=== PATIENT | male | born 1975 | race Caucasian/White ===

== ENCOUNTER → 2017-09-06 | Outpatient (CLI) | payer BC ==
[~2017-09-06] MED LIST: ALPR-411 PO; CETI10TA84 PO; CHOL200010 PO; CYM/30 PO; FNTTP50 TOP; INSPMPNVLG; LEVO137T3 PO; MULT-506 PO; OMEP40CA PO; TAMS0.4C59 PO
--- NOTE | 2017-09-06 16:54 | DIAGNOSTIC IMAGING REPORT ---
THORACIC SPINE 3 VIEWS ROUTINE HISTORY: Pain BACK PAIN COMPARISON: None. FINDINGS: There is no fracture. No subluxation. Considerable degenerative disc changes throughout. Moderate sclerosis vertebral endplates throughout the entire thoracic region. No evidence for an acute compression deformity. IMPRESSION: Considerable degenerative disc change throughout the entire thoracic region. No acute process. The above report was generated using voice recognition software. It may contain grammatical, syntax or spelling errors. Electronically signed by: Noah Murrieta M.D. 09/06/2017 4:53 PM Dictated Date/Time: 09/06/2017 4:53 PM
== END | disposition home or self-care (01) ==
LOC: C.RAD1850 16:37
PROVIDERS: ATTEND Family Medicine
DX: M54.9 Dorsalgia, unspecified (principal)

== ENCOUNTER 2017-10-17 17:25 | Emergency (ER) | payer BC, OTHER ==
[~2017-10-17] VITALS: Ht 200.7 cm; Wt 103.0 kg
[2017-10-17 17:43] VITALS: TEMP 36.6
[2017-10-17] MEDS ORDERED: ONDANSETRON INJ 2 MG/ML 2 ML VIAL ONE (17:58)
[2017-10-17] MEDS ORDERED: SODIUM CHLORIDE 0.9% 1000ML 1,000 ML IV STA ×3 (18:01→20:54)
[2017-10-17] MEDS ORDERED: ONDANSETRON INJ 2 MG/ML 2 ML VIAL IV STA (18:01)
[2017-10-17] MEDS ORDERED: SODIUM CHLORIDE 0.9% 500ML 500 ML IV STA (18:01)
[2017-10-17 18:05] VITALS: Ht 200.7 cm; Wt 103.0 kg
[2017-10-17] MEDS ORDERED: PROMETHAZINE HCL INJ 25 MG in SODIUM CHLORIDE 0.9% 50ML 50 ML IV STA (18:12)
[2017-10-17] MEDS ORDERED: FENT75DI2 TD (18:18)
[2017-10-17] MEDS ORDERED: LEVO125T72 PO (18:18)
[2017-10-17 18:23] LABS: BASO % 0.1 %; BASO ABS # 0.01 K/uL (0-0.2); HEMATOCRIT 40.5 % (42-52); HEMOGLOBIN 14.2 g/dL (14.0-18.0); IG# 0.03 K/uL (0.00-0.02); LYMPH % 5.8 %; LYMPH ABS # 0.65 K/uL (1.2-3.4); MEAN CELL VOLUME 83.9 fL (80-100); MEAN CORPUSCULAR HEMOGLOBIN 29.4 pg (25-34); MEAN CORPUSCULAR HGB CONC 35.1 g/dl (32-36); MEAN PLATELET VOLUME 9.2 fL (7.4-10.4); MONO % 2.9 %; MONO ABS # 0.32 K/uL (0.11-0.59); NEUT % 90.9 %; NEUT ABS # 10.11 K/uL (1.4-6.5); PLATELET COUNT 371 K/uL (130-400); RED CELL DISTRIBUTION WIDTH CV 12.9 % (11.5-14.5); RED CELL DISTRIBUTION WIDTH SD 39.2 fL (36.4-46.3); WHITE BLOOD COUNT 11.12 K/uL (4.8-10.8)
[2017-10-17 18:29] VITALS: O2SAT 96
[2017-10-17 18:33] LABS: CALCIUM 9.6 mg/dl (8.5-10.1); POTASSIUM 3.5 mmol/L (3.5-5.1)
[2017-10-17 18:44] LABS: TOTAL PROTEIN 8.4 gm/dl (6.4-8.2)
--- NOTE | 2017-10-17 18:52 | DIAGNOSTIC IMAGING REPORT ---
CT SCAN OF THE ABDOMEN AND PELVIS WITHOUT IV CONTRAST CLINICAL HISTORY: Vomiting. Left lower quadrant abdominal pain. COMPARISON STUDY: Abdominal radiographs dated 06/28/2014. TECHNIQUE: CT scan of the abdomen and pelvis is performed from the lung bases to the proximal femora. Images are reviewed in the axial, sagittal, and coronal planes. IV contrast was not administered for this examination as per the referring clinician. Note that the examination was performed in suboptimal fashion without oral and IV contrast. A dose lowering technique was utilized adhering to the principles of ALARA. CT DOSE: 1772.49 mGy.cm FINDINGS: Lung bases: The heart is normal in size and without pericardial effusion. A 2 mm right middle lobe pulmonary nodule is seen on image #22. Punctate calcified granulomas are seen at the lung bases. No airspace consolidation or pleural effusion is identified. Liver: The unenhanced liver is normal in size, contour, and attenuation. There is no intrahepatic biliary ductal dilatation. Gallbladder: Unremarkable. Spleen: Normal in size and attenuation. Pancreas: Unremarkable. Adrenal glands: Unremarkable. Kidneys: The unenhanced kidneys are normal in size and without hydronephrosis. There is a 4 mm nonobstructing calculus in the lower pole of the left kidney. No right renal calculi are identified. There is no evidence of contour deforming renal mass lesion. Abdominal vasculature: The abdominal aorta is normal in course and caliber. Bowel: Mild pericolonic infiltration is questioned. There is no bowel obstruction. The appendix is well-visualized and normal. Peritoneum: There is no intraperitoneal free air or abdominal ascites. There is a small fat-containing umbilical hernia. Lymphadenopathy: None. Pelvic viscera: The bladder, prostate, and seminal vesicles are normal as visualized. Skeletal structures: No lytic or blastic lesions are seen. IMPRESSION: 1. Suboptimal examination without oral and IV contrast. 2. There is a nonobstructing left renal calculus. No ureteral stone is identified and there is no hydronephrosis. 3. Mild pericolonic infiltration is questioned. This is of indeterminant significance. Correlate clinically for evidence of a mild nonspecific colitis. 4. Additional findings as above. Electronically signed by: Brandt Rivera M.D. 10/17/2017 6:51 PM Dictated Date/Time: 10/17/2017 6:40 PM
[2017-10-17] MEDS ORDERED: METOCLOPRAMIDE HCL INJ 5 MG/ML 2 ML VIAL IV STA (19:44)
[2017-10-17] MEDS ORDERED: DiphenhydrAMINE HCL 50 MG/ML VIAL IV STA (19:44)
[2017-10-17] MEDS ORDERED: PROCHLORPERAZINE 5 MG/ML 2 ML VIAL IV STA (21:07)
[2017-10-17 21:24] VITALS: O2SAT 98
--- NOTE | 2017-10-17 21:47 | EMERGENCY ROOM VISIT NOTE ---
History Report prepared by Chaya: Mic Tamayo Under the Supervision of: Dr. Ghanshyam Medina M.D. First contact with patient: 18:00 Chief Complaint: VOMITING Stated Complaint: TYPE 1 DIABETIC,N/V,NO URINATION Nursing Triage Summary: Patient is a Type 1 Diabetic with an insulin pump. Patient has had nausea, vomiting and diarrhea with generalized abdominal pain all day today. Patient's BSGs were in the 300s earlier today. This afternoon, his sugar dropped to 40-90s. Patient drank some juice before coming to the ER. Pump is still attached to patient. Patient unable to sit still. Patient pale and short of breath. History of Present Illness The patient is a 42 year old male who presents to the Emergency Room with complaints of generalized abdominal "discomfort" that he has been experiencing for the past couple of days. The patient did not describe his symptoms as "pain " but stated that his nausea discomfort is an 8/10 in severity. He has also been nauseated with dry heaving for the past couple of days, but only first began to vomit today. The patient is a diabetic and has had gastroparesis in the past. He notes the discomfort from that episode was in a different location. His blood sugars were 150-250 today, which is baseline for him. He notes being intermittently diaphoretic today. The patient takes Fentanyl at baseline for DDD and other chronic back issues. Pt denies LOC, headache, fevers , chills, visual changes, neck pain, chest pain, breathing difficulties, back pain, melena, hematochezia, urinary symptoms, numbness, weakness, lymphadenopathy, rash, or other complaints. Source of History: patient Onset: Couple of days [employer] Position: abdomen Symptom Intensity: 8/10 Quality: other (Discomfort) Associated Symptoms: + diaphoresis, + nausea, + vomiting Review of Systems See HPI for pertinent positives and negatives. A total of ten systems were reviewed and were otherwise negative. Past Medical & Surgical Medical Problems: (1) DDD (degenerative disc disease) (2) Diabetes Family History Cancer Diabetes mellitus Lung disease Social History Smoking Status: Never Smoker Marital Status: Housing Status: lives with significant other Occupation Status: [employer] student Current/Historical Medications Scheduled Alprazolam (Alprazolam), 1 MG PO HS Cetirizine (Zyrtec), 10 MG PO DAILY Cholecalciferol (Vitamin D), 2,000 INTUNIT PO QAM Duloxetine Hcl (Cymbalta), 30 MG PO BID Fentanyl (Fentanyl), 75 MCG TD [id number] Insulin Aspart (novoLOG INSULIN PUMP ), 1 EA N/A UD Levothyroxine Sodium (Synthroid), 125 MCG PO DAILY Multivitamin (Multivitamin), 1 TAB PO HS Allergies Coded Allergies: No Known Allergies (Verified , 10/17/17) Physical Exam Vital Signs Date Time Temp Pulse Resp B/P (MAP) Pulse Ox O2 Delivery O2 Flow Rate FiO2 10/17/17 21:24 80 16 119/56 98 10/17/17 19:51 100 140/69 10/17/17 18:29 96 Room Air 10/17/17 17:43 36.6 92 18 141/75 94 Room Air Physical Exam GENERAL: Awake, alert, Actively vomiting, in moderate distress, very uncomfortable HENT: Normocephalic, atraumatic. Oropharynx unremarkable. EYES: Normal conjunctiva. Sclera non-icteric. NECK: Supple. No nuchal rigidity. FROM. No JVD. RESPIRATORY: Clear to auscultation. CARDIAC: Regular rate, normal rhythm. Extremities warm and well perfused. Pulses equal. ABDOMEN: Soft, non-distended. with LLQ tenderness to palpation. No rebound or guarding. No masses. RECTAL: Deferred. MUSCULOSKELETAL: Chest examination reveals no tenderness. The back is symmetrical on inspection without obvious abnormality. There is no CVA tenderness to palpation. No joint edema. LOWER EXTREMITIES: Calves are equal size bilaterally and non-tender. No edema. No discoloration. NEURO: Normal sensorium. No sensory or motor deficits noted. SKIN: No rash or jaundice noted. Medical Decision & Procedures ER Provider Diagnostic Interpretation: Radiology results as stated below per my review and radiologist interpretation: CT SCAN OF THE ABDOMEN AND PELVIS WITHOUT IV CONTRAST CLINICAL HISTORY: Vomiting. Left lower quadrant abdominal pain. COMPARISON STUDY: Abdominal radiographs dated 06/28/2014. TECHNIQUE: CT scan of the abdomen and pelvis is performed from the lung bases to the proximal femora. Images are reviewed in the axial, sagittal, and coronal planes. IV contrast was not administered for this examination as per the referring clinician. Note that the examination was performed in suboptimal fashion without oral and IV contrast. A dose lowering technique was utilized adhering to the principles of ALARA. CT DOSE: 1772.49 mGy.cm FINDINGS: Lung bases: The heart is normal in size and without pericardial effusion. A 2 mm right middle lobe pulmonary nodule is seen on image #22. Punctate calcified granulomas are seen at the lung bases. No airspace consolidation or pleural effusion is identified. Liver: The unenhanced liver is normal in size, contour, and attenuation. There is no intrahepatic biliary ductal dilatation. Gallbladder: Unremarkable. Spleen: Normal in size and attenuation. Pancreas: Unremarkable. Adrenal glands: Unremarkable. Kidneys: The unenhanced kidneys are normal in size and without hydronephrosis. There is a 4 mm nonobstructing calculus in the lower pole of the left kidney. No right renal calculi are identified. There is no evidence of contour deforming renal mass lesion. Abdominal vasculature: The abdominal aorta is normal in course and caliber. Bowel: Mild pericolonic infiltration is questioned. There is no bowel obstruction. The appendix is well-visualized and normal. Peritoneum: There is no intraperitoneal free air or abdominal ascites. There is a small fat-containing umbilical hernia. Lymphadenopathy: None. Pelvic viscera: The bladder, prostate, and seminal vesicles are normal as visualized. Skeletal structures: No lytic or blastic lesions are seen. IMPRESSION: 1. Suboptimal examination without oral and IV contrast. 2. There is a nonobstructing left renal calculus. No ureteral stone is identified and there is no hydronephrosis. 3. Mild pericolonic infiltration is questioned. This is of indeterminant significance. Correlate clinically for evidence of a mild nonspecific colitis. 4. Additional findings as above. Electronically signed by: Brandt Rivera M.D. 10/17/2017 6:51 PM Dictated Date/Time: 10/17/2017 6:40 PM Laboratory Results 10/17/17 17:53 Red Blood Count 4.83, Mean Corpuscular Volume 83.9, Mean Corpuscular Hemoglobin 29.4, Mean Corpuscular Hemoglobin Concent 35.1, Mean Platelet Volume 9.2, Neutrophils (%) (Auto) 90.9, Lymphocytes (%) (Auto) 5.8, Monocytes (%) (Auto) 2.9, Eosinophils (%) (Auto) 0.0, Basophils (%) (Auto) 0.1, Neutrophils # (Auto) 10.11, Lymphocytes # (Auto) 0.65, Monocytes # (Auto) 0.32, Eosinophils # (Auto) 0.00, Basophils # (Auto) 0.01 10/17/17 17:53 Test 10/17/17 17:53 10/17/17 22:15 White Blood Count 11.12 K/uL (4.8-10.8) Red Blood Count 4.83 M/uL (4.7-6.1) Hemoglobin 14.2 g/dL (14.0-18.0) Hematocrit 40.5 % (42-52) Mean Corpuscular Volume 83.9 fL (80-100) Mean Corpuscular Hemoglobin 29.4 pg (25-34) Mean Corpuscular Hemoglobin Concent 35.1 g/dl (32-36) Platelet Count 371 K/uL (130-400) Mean Platelet Volume 9.2 fL (7.4-10.4) Neutrophils (%) (Auto) 90.9 % Lymphocytes (%) (Auto) 5.8 % Monocytes (%) (Auto) 2.9 % Eosinophils (%) (Auto) 0.0 % Basophils (%) (Auto) 0.1 % Neutrophils # (Auto) 10.11 K/uL (1.4-6.5) Lymphocytes # (Auto) 0.65 K/uL (1.2-3.4) Monocytes # (Auto) 0.32 K/uL (0.11-0.59) Eosinophils # (Auto) 0.00 K/uL (0-0.5) Basophils # (Auto) 0.01 K/uL (0-0.2) RDW Standard Deviation 39.2 fL (36.4-46.3) RDW Coefficient of Variation 12.9 % (11.5-14.5) Immature Granulocyte % (Auto) 0.3 % Immature Granulocyte # (Auto) 0.03 K/uL (0.00-0.02) Anion Gap 9.0 mmol/L (3-11) Est Creatinine Clear Calc Drug Dose 127.6 ml/min Estimated GFR () 107.1 Estimated GFR (Non- 92.4 BUN/Creatinine Ratio 12.1 (10-20) Calcium Level 9.6 mg/dl (8.5-10.1) Magnesium Level 2.0 mg/dl (1.8-2.4) Total Bilirubin 0.4 mg/dl (0.2-1) Aspartate Amino Transf (AST/SGOT) 21 U/L (15-37) Alanine Aminotransferase (ALT/SGPT) 25 U/L (12-78) Alkaline Phosphatase 91 U/L (45-117) Total Protein 8.4 gm/dl (6.4-8.2) Albumin 4.0 gm/dl (3.4-5.0) Globulin 4.4 gm/dl (2.5-4.0) Albumin/Globulin Ratio 0.9 (0.9-2) Lipase 39 U/L (73-393) Beta-Hydroxybutyric Acid 11.06 mg/dL (0.2-2.81) Thyroid Stimulating Hormone (TSH) 0.274 uIu/ml (0.300-4.500) Laboratory results reviewed by me Medications Administered Medications (Trade) Dose Ordered Sig/Francesco Route Start Time Stop Time Status Last Admin Dose Admin Ondansetron HCl (Zofran Inj) 4 mg STK-MED ONCE .ROUTE 10/17/17 17:58 10/17/17 17:59 DC 10/17/17 17:58 4 MG Sodium Chloride 1,000 ml @ 999 mls/hr Q1H1M STAT IV 10/17/17 18:01 10/17/17 19:01 DC 10/17/17 18:01 999 MLS/HR Promethazine HCl 25 mg/Sodium Chloride 51 ml @ 204 mls/hr NOW STAT IV 10/17/17 18:12 10/17/17 18:26 DC 10/17/17 18:32 204 MLS/HR Sodium Chloride 1,000 ml @ 999 mls/hr Q1H1M STAT IV 10/17/17 19:32 10/17/17 20:32 DC 10/17/17 19:45 999 MLS/HR Metoclopramide HCl (Reglan Inj) 10 mg NOW STAT IV 10/17/17 19:44 10/17/17 19:45 DC 10/17/17 19:51 10 MG Diphenhydramine HCl (Benadryl Inj) 25 mg NOW STAT IV 10/17/17 19:44 10/17/17 19:45 DC 10/17/17 19:51 25 MG Sodium Chloride 1,000 ml @ 200 mls/hr Q5H STAT IV 10/17/17 20:54 10/18/17 01:53 10/17/17 20:54 200 MLS/HR Prochlorperazine Edisylate (Compazine Inj) 5 mg NOW STAT IV 10/17/17 21:07 10/17/17 21:08 DC 10/17/17 21:38 5 MG ECG Indication: vomiting Rate (beats per minute): 59 Rhythm: sinus bradycardia, sinus with SA Findings: no acute ischemic change, no ectopy ED Course 175: Ordered Zofran 4 mg IV, Sodium Chloride 1000 mL @ 999 mL/hr IV. 1800: Ordered Sodium Chloride 500 mL @ 999 mL/hr IV. 1802: The patient was evaluated in room C6. A complete history and physical exam was performed. 1811: Ordered Promethazine HCl 51 mL @ 204 mL/hr IV. 1856: I checked on the patient at this time. He is feeling improved. 1938: I checked on the patient at this time. I updated him on the case. 2038: I reevaluated the patient at this time. He is still nauseated. 2149: Patient reevaluated. He is feeling much better. Discussed conservative management with oral Compazine. Patient felt comfortable. He'll follow-up with his PCP regarding the findings. Medical Decision Prior records/ancillary studies reviewed. Triage Nursing notes reviewed and agree them. Additional history obtained from the family. The patient's history was concerning for nausea, vomiting, and abdominal discomfort. Differential diagnosis: Etiologies such as gastroenteritis, food borne illness, infections, appendicitis , diverticulitis, inflammatory bowel disease, GI bleed, biliary pathology, as well as others were entertained. Physical examination findings: As above some mild left lower quadrant tenderness elicited ER treatment provided: IV hydration 2 L NSS and then 200 mL an hour IV IV Zofran IV Phenergan IV Reglan with IV Benadryl On reassessment the patient was still somewhat nauseated but did improve. IV Compazine On reassessment the patient was feeling much better. Nausea, vomiting and dry heaving resolved. Discussed having some oral Compazine at home. Patient was in agreement. Diagnostics interpretation by me: ECG: Sinus bradycardia The labs revealed slight leukocytosis and CBC. Chemistry panel revealed minimal hyperglycemia. No acidosis. Slight elevation of BHB. Mildly low thyroid hormone. Imaging studies: CT scans The patient had significant discomfort from nausea and dry heaving. His CT scan did not reveal any acute intra-abdominal findings but question some mild colitis versus underdistention.. He was hydrated. He is given multiple doses of antinausea medication and had marginal improvement until he received IV Compazine. He then felt significantly better. He was observed and did well. I discussed conservative management at home with close follow-up with his primary physician. He was in agreement. He did have a small amount of Compazine oral tablets given to go. He does have Phenergan at home. If He worsens in any way he will be back. He will monitor her sugar closely. I gave my usual and customary discussion regarding this issue. By the evaluation outlined above other emergent etiologies such as those listed in the differential, as well as others, were deemed relatively unlikely. The patient was educated about the findings as listed above. All questions were answered and the patient was pleased with the treatment. Return instructions were outlined and the patient was discharged in stable condition. The patient was referred to his PCP for follow-up for a recheck of the current condition. Impression Primary Impression: Vomiting Additional Impressions: Abdominal pain, left lower quadrant Colitis Scribe Attestation The scribe's documentation has been prepared under my direction and personally reviewed by me in its entirety. I confirm that the note above accurately reflects all work, treatment, procedures, and medical decision making performed by me. Departure Information Dispostion Home / Self-Care Referrals Cecily Escalante D.O. (PCP) Patient Instructions My [facility] Additional Instructions VOMITING INSTRUCTIONS: DO NOT drive, drink alcohol, operate machinery, or perform dangerous activities today. You were given medications in the ER that can affect your ability to safely function or operate a vehicle. Compazine(prochlorperazine) tablets 5mg: Take one every six hours as needed for nausea. Avoid alcohol, operating machinery or dangerous equipment, working on ladders or roofs, DRIVING, or situations where being under the influence may be dangerous. Ibuprofen(Motrin, Advil) may be used for fever or pain. Use 600mg every six hours as needed. Take with food. Avoid using more than 2400mg in a 24 hour period. Do not use 2400mg per day for more than three consecutive days without physician direction. Prolonged inappropriate use can lead to stomach upset or ulcers. (AND/OR) Acetaminophen(Tylenol) may be used for fever or pain. Use 1000mg every six hours as needed. Avoid using more than 4000mg in a 24 hour period. Rest and drink plenty of fluids as tolerated. Slow sips of water or sports drinks are recommended instead of large amounts all at once. Continue current medications. Once your stomach is settled start with a clear liquid diet (jello, soup broth, etc.) and then advance as tolerated. You should avoid full, heavy meals for about 24 hrs from the time your symptoms resolved. Return to the ER for persistent vomiting, fevers, abdominal pain, chest pains, difficulty breathing, black or bloody stools, worsening of your condition, or as needed. Follow up with your primary physician in 2-3 days for a recheck of your current condition Problem Qualifiers
[2017-10-17] MEDS ORDERED: PROCHLORPERAZINE MALEATE 5 MG TAB PO ONE (22:00)
[2017-10-17] MEDS ORDERED: PHENERGAN 25MG HOMEPACK PO ONE (22:26)
[2017-10-17 22:39] VITALS: BP 105/58; PULSE 80
== END 2017-10-17 22:40 | disposition home or self-care (01) ==
LOC: C.EDB 17:28 → C.EDC 22:40
DX: R11.10 Vomiting, unspecified (principal); R10.32 Left lower quadrant pain; K52.9 Noninfective gastroenteritis and colitis, unspecified; E10.9 Type 1 diabetes mellitus without complications; Z96.41 Presence of insulin pump (external) (internal); Z80.9 Family history of malignant neoplasm, unspecified; Z83.3 Family history of diabetes mellitus; Z83.6 Family history of other diseases of the respiratory system; Z79.4 Long term (current) use of insulin; Z79.899 Other long term (current) drug therapy

== ENCOUNTER 2020-02-23 13:34 | Observation (INO) ==
[2020-02-23] MEDS ORDERED: DiphenhydrAMINE HCL 50 MG/ML VIAL IV STA (13:47)
[2020-02-23] MEDS ORDERED: PROCHLORPERAZINE 2 ML IV ONE (13:47)
[2020-02-23] MEDS ORDERED: SODIUM CHLORIDE 0.9% 1000ML 1,000 ML IV ONE (13:47)
[2020-02-23] MEDS ORDERED: CAPSAICIN CR 0.075% 60 GM TUBE EXT STA (13:47)
[2020-02-23] MEDS ORDERED: MAGNESIUM SULFATE / D5W 1 GM/100 ML BAG IV ONE (13:47)
[2020-02-23] MEDS ORDERED: ACETAMINOPHEN 1,000 MG/100 ML VIAL IV STA (13:49)
[2020-02-23 14:00] LABS: Basophils # (auto) 0.02 K/uL (0-0.2); Basophils % (auto) 0.2 %; Eosinophils # (auto) 0.01 K/uL (0-0.5); Eosinophils % (auto) 0.1 %; Hematocrit (blood only) 39.3 % (42-52); Hemoglobin 13.5 g/dL (14.0-18.0); Immature Granulocytes # (auto) 0.01 K/uL (0.00-0.02); Immature Granulocytes % (auto) 0.1 %; Lymphocytes # (auto) 0.89 K/uL (1.2-3.4); Lymphocytes % (auto) 10.9 %; Mean Corpuscular Hemoglobin 29.3 pg (25-34); Mean Corpuscular Hgb Conc 34.4 g/dL (32-36); Mean Corpuscular Volume 85.2 fL (80-100); Mean Platelet Volume 9.8 fL (7.4-10.4); Monocytes # (auto) 0.54 K/uL (0.11-0.59); Monocytes % (auto) 6.6 %; Neutrophils # (auto) 6.73 K/uL (1.4-6.5); Neutrophils % (auto) 82.1 %; Platelet Count 215 K/uL (130-400); RDW Coefficient of Variation 13.1 % (11.5-14.5); RDW Standard Deviation 40.8 fL (36.4-46.3); Red Blood Count 4.61 M/uL (4.7-6.1)
[2020-02-23 14:22] LABS: BUN Creatinine Ratio 9.3 (10-20); Calcium 9.5 mg/dl (8.5-10.1); Creatinine Clr Calc Pharmacy 134.3 ml/min; Est GFR (African American) 115.3; Est GFR (Non-African American) 99.5; Potassium 3.3 mmol/L (3.5-5.1)
[2020-02-23 14:25] LABS: Albumin Globulin Ratio 1.1 (0.9-2); Bilirubin,Total 0.5 mg/dl (0.2-1); Globulin 3.7 gm/dl (2.5-4.0); Total Protein 7.7 gm/dl (6.4-8.2)
[2020-02-23] MEDS ORDERED: ONDANSETRON INJ 2 MG/ML 2 ML VIAL IV STA (14:28)
[2020-02-23] MEDS ORDERED: POTASSIUM CHLORIDE 20 MEQ/15 ML UDC PO STA (14:28)
[2020-02-23] MEDS: POTASSIUM CHLORIDE / WTR 10 MEQ/100 ML PLCT IV SCH ×2 (15:09→16:08)
[2020-02-23] MEDS ORDERED: CHOLESTYRAMINE LIGHT 4 GM PKT PO STA (15:14)
--- NOTE | 2020-02-23 15:30 | Emergency Department Note ---
History of Present Illness General Chief complaint: Vomiting Stated complaint: DEHYDRATION Time Seen by Provider: 02/23/20 13:41 Source: patient and RN notes reviewed Mode of arrival: ambulatory Limitations: no limitations History of Present Illness Provider complaint: vomiting Onset (ago): day(s) 2 Location: abdomen Radiation: non-radiation Severity: mild Pain Consistency: + constant Maximum Pain Intensity: 3 Relieved By: + none Exacerbated By: + none Associated symptoms: no chest pain, no diaphoresis, no fever/chills, no headaches, no shortness of breath and no weakness Treatments prior to arrival: other (compazine, phenergan) This is a 44-year-old male who presents emergency department complaining of nausea and vomiting. The patient reports he has had episodes like this previously. He took Compazine and Phenergan without any relief. The patient denies any head pain or abdominal pain. He is a diabetic however denies any issues with his sugar. He has previously seen Dr. Leon for his gastro issues. Home Medications Home Medications Medication Instructions Recorded Confirmed Type acetone (urine) test #25 05/07/19 12/04/19 History blood sugar diagnostic #10 05/07/19 12/04/19 History blood-glucose meter #1 ea 05/07/19 12/04/19 History bupropion HCl 150 mg tablet,12 hr 150 mg PO DIRECTED 05/07/19 12/04/19 History sustained-release cholecalciferol (vitamin D3) 50 0 units PO DAILY cap 05/07/19 12/04/19 History mcg (2,000 unit) capsule cyanocobalamin (vitamin B-12) 500 0 mcg PO DAILY tab 05/07/19 12/04/19 History mcg tablet fentanyl 75 mcg/hr transdermal 1 patch TD Q72H 05/07/19 12/04/19 History patch glucagon HCl 1 mg/mL solution for 1 mg IM DIRECTED PRN 05/07/19 12/04/19 History injection insulin glargine 100 unit/mL See Rx Instructions .ROUTE .COMPLEX 05/07/19 12/04/19 History subcutaneous solution insulin syringe-needle U-100 0.5 #10 05/07/19 12/04/19 History mL 31 gauge x 5/16" lancets #50 05/07/19 12/04/19 History prochlorperazine maleate 5 mg PO BID PRN #14 tab 08/24/19 12/04/19 Rx [Compazine] promethazine 12.5 mg PO TID PRN #7 tab 08/24/19 12/04/19 Rx duloxetine 60 mg capsule,delayed 60 mg PO BID cap 09/04/19 12/04/19 History release Baqsimi 3 mg/actuation nasal spray 3 mg INTNAS ONCE #2 ea NS 10/01/19 12/04/19 Rx Novolog U-100 Insulin aspart 100 See Rx Instructions CONTINUOUS 11/02/19 12/04/19 Rx unit/mL subcutaneous solution SUBCUTANEOUS INFUSION DAILY #8 vial NS lisdexamfetamine 20 mg capsule 30 mg PO DAILY cap 12/04/19 12/04/19 History levothyroxine 112 mcg tablet 112 mcg PO DAILYBB #30 tab 12/14/19 Rx ondansetron HCl [Zofran] 4 mg PO Q6 PRN #6 tab 02/23/20 Rx Allergies Allergy/AdvReac Type Severity Reaction Status Date / Time No Known Drug Allergies Allergy Verified 01/24/20 12:10 pollen extracts Allergy Verified 01/24/20 12:10 Past Med/Surg History Medical History Nausea Surgical History History of cervical discectomy (2009) Family History Mother Multiple myeloma Denies family history of Prostate cancer Social History Preferred Language: Kinyarwanda Feels Safe at Home: Yes Smoking Status: Never smoker Review of Systems A total of 10 systems reviewed and were otherwise negative Physical Exam Vital Signs Vital Signs - 24 hr 02/23/20 13:35 02/23/20 15:19 02/23/20 15:30 Temperature 36.6 C Temperature Source Oral Pulse Rate 77 80 92 H Respiratory Rate 22 10 L 21 Respiratory Effort / Characteristics Non-Labored Respiratory Depth Normal Blood Pressure 157/64 H Blood Pressure Mean 95 Blood Pressure Position Sitting Pulse Oximetry 100 Oxygen Delivery Method Room Air Sepsis Recent Fever Within 48 Hours No Sepsis New/Unexplained Change in Mental Status No Sepsis Action Taken by Nursing No Action Required 02/23/20 16:00 02/23/20 16:30 Temperature Temperature Source Pulse Rate 73 79 Respiratory Rate 16 17 Respiratory Effort / Characteristics Respiratory Depth Blood Pressure Blood Pressure Mean Blood Pressure Position Pulse Oximetry Oxygen Delivery Method Sepsis Recent Fever Within 48 Hours Sepsis New/Unexplained Change in Mental Status Sepsis Action Taken by Nursing VITAL SIGNS - Vital signs and nursing notes were reviewed. GENERAL - 44-year-old male appearing stated age who is actively vomiting. Communicates well with provider and answers questions appropriately. SKIN - Without rashes. HEAD - NC/AT. EYES - PERRL with EOMI bilaterally. Sclera anicteric. Palpebral conjunctiva pink and moist with no injection noted. EARS - No deformities of external structures noted on gross examination bilaterally. No pain elicited with palpation of the tragus bilaterally. External auditory canals without discharge or otorrhea. Tympanic membranes pearly guevara without retraction or bulging. No fluid or purulent material visualized behind the TM. Handle of malleus, umbo, cone of light, pars tensa/flaccid all easily visualized. NOSE - Midline and without cyanosis. No epistaxis or purulent drainage noted. Septum midline without deviation or septal hematoma noted. MOUTH/OROPHARYNX - Without perioral cyanosis. Buccal mucosa pink and moist and without leukoplakia. Tongue midline with equal elevation of palate bilaterally. No tonsillar hypertrophy, erythema, or exudates noted. dentition noted. NECK - Neck with FROM. Supple to palpation. lymphadenopathy noted. No nuchal rigidity. LUNGS - Chest wall symmetric without accessory muscle use, intercostals retractions, or central cyanosis. Normal vesicular breath sounds CTA B/L. No wheezes, rales, or rhonchi appreciated. CARDIAC - RRR with S1/S2. No murmur, rubs, or gallops appreciated. ABDOMEN - Abdominal contour without pulsations or visible masses. BS normoactive all four quadrants. No tenderness, palpable masses, hepatosplenomegaly, or ascites noted. EXTREMITIES - No clubbing or peripheral cyanosis. No pretibial edema present. +3/5 radial, posterior tibial, and dorsalis pedis pulses palpated throughout. +5/5 strength noted in UE/LE bilaterally. NEUROLOGIC - Cranial nerves II through XII grossly intact. Sensory intact to light touch throughout. Patellar reflexes +2/4. PSYCH - A&Ox3 and cooperates fully with examiner. Pt is very pleasant and interacts well with examiner. Course Administered Medications Discontinued Medications Capsaicin (Zostrix) 1 appln EXT NOW STA Stop: 02/23/20 13:48 Last Admin: 02/23/20 14:04 Dose: 1 appln Documented by: [id number] Cholestyramine Resin (Questran) 4 gm PO NOW STA Stop: 02/23/20 15:15 Last Admin: 02/23/20 16:04 Dose: 4 gm Documented by: [id number] Diphenhydramine HCl (Benadryl) 50 mg IV NOW STA Stop: 02/23/20 13:48 Last Admin: 02/23/20 14:04 Dose: 50 mg Documented by: [id number] Sodium Chloride (Nss 1000ml) 1,000 mls @ 999 mls/hr IV .Q1H1M ONE Stop: 02/23/20 14:47 Last Infusion: 02/23/20 15:10 Dose: 0 mls/hr Documented by: [id number] Admin: 02/23/20 14:04 Dose: 999 mls/hr Documented by: [id number] Prochlorperazine (Compazine) 2 mls @ 1 mls/min IV ONE ONE Stop: 02/23/20 13:48 Last Admin: 02/23/20 14:04 Dose: 1 mls/min Documented by: [id number] Magnesium Sulfate/Dextrose (Magnesium Sulfate / D5w) 1 gm in 100 mls @ 50 mls/hr IV ONE ONE Stop: 02/23/20 15:46 Last Infusion: 02/23/20 15:09 Dose: 0 mls/hr Documented by: [id number] Admin: 02/23/20 14:28 Dose: 50 mls/hr Documented by: [id number] Acetaminophen (Ofirmev) 1,000 mg in 100 mls @ 400 mls/hr IV NOW STA Stop: 02/23/20 14:03 Last Infusion: 02/23/20 14:29 Dose: 0 mls/hr Documented by: [id number] Admin: 02/23/20 14:04 Dose: 400 mls/hr Documented by: [id number] Potassium Chloride (K Leonard / Wtr) 10 meq in 100 mls @ 100 mls/hr IV Q1H CRESENCIO Stop: 02/23/20 16:29 Last Infusion: 02/23/20 17:05 Dose: 0 mls/hr Documented by: [id number] Admin: 02/23/20 16:08 Dose: 100 mls/hr Documented by: [id number] Infusion: 02/23/20 16:08 Dose: 100 mls/hr Documented by: [id number] Admin: 02/23/20 15:09 Dose: 100 mls/hr Documented by: [id number] Promethazine HCl (Phenergan) 25 mg in 51 mls @ 204 mls/hr IV NOW STA Stop: 02/23/20 17:26 Last Infusion: 02/23/20 17:42 Dose: 0 mls/hr Documented by: [id number] Admin: 02/23/20 17:24 Dose: 204 mls/hr Documented by: [id number] Methylprednisolone (Solumedrol) 125 mg IV NOW STA Stop: 02/23/20 17:13 Last Admin: 02/23/20 17:24 Dose: 125 mg Documented by: [id number] Ondansetron HCl (Zofran) 4 mg IV NOW STA Stop: 02/23/20 14:29 Last Admin: 02/23/20 14:50 Dose: 4 mg Documented by: [id number] Potassium Chloride (Theresa Ciel Elix) 40 meq PO NOW STA Stop: 02/23/20 14:29 Last Admin: 02/23/20 15:09 Dose: 40 meq Documented by: [id number] Medical Decision Making Differential Diagnosis Appendicitis, testicular torsion, infections, diverticulitis, UTI, obstruction, mesenteric ischemia, aortic pathology, inflammatory bowel disease, renal colic, PUD, pancreatitis, biliary pathology, hernia, volvulus, constipation, as well as other pathologies. Medical Records Attestation: I reviewed the patient's medical records. Home Medications Current Medication List: was personally reviewed by me Laboratory Data Attestation: I reviewed the patient's lab results. Result diagrams: 02/23/20 13:50 02/23/20 13:50 Lab Results 02/23/20 02/23/20 Range/Units 13:50 13:50 WBC 8.20 (4.8-10.8) K/uL RBC 4.61 L (4.7-6.1) M/uL Hgb 13.5 L (14.0-18.0) g/dL Hct 39.3 L (42-52) % MCV 85.2 (80-100) fL MCH 29.3 (25-34) pg MCHC 34.4 (32-36) g/dL RDW Std Deviation 40.8 (36.4-46.3) fL RDW Coeff of Edd 13.1 (11.5-14.5) % Plt Count 215 (130-400) K/uL MPV 9.8 (7.4-10.4) fL Immature Gran % (Auto) 0.1 % Neut % (Auto) 82.1 % Lymph % (Auto) 10.9 % [place] % (Auto) 6.6 % Eos % (Auto) 0.1 % Baso % (Auto) 0.2 % Immature Gran # (Auto) 0.01 (0.00-0.02) K/uL Neut # (Auto) 6.73 H (1.4-6.5) K/uL Lymph # (Auto) 0.89 L (1.2-3.4) K/uL [place]ell # (Auto) 0.54 (0.11-0.59) K/uL Eos # (Auto) 0.01 (0-0.5) K/uL Baso # (Auto) 0.02 (0-0.2) K/uL Sodium 138 (136-145) mmol/L Potassium 3.3 L (3.5-5.1) mmol/L Chloride 104 (98-107) mmol/L Carbon Dioxide 24 (21-32) mmol/L Anion Gap 10.0 (3-11) BUN 9 (7-18) mg/dl Creatinine 0.93 (0.6-1.4) mg/dl Est Cr Clr Drug Dosing 134.3 ml/min Est GFR ( Amer) 115.3 Est GFR (Non-Af Amer) 99.5 BUN/Creatinine Ratio 9.3 L (10-20) Glucose 181 H (70-99) mg/dl Calcium 9.5 (8.5-10.1) mg/dl Total Bilirubin 0.5 (0.2-1) mg/dl AST 48 H (15-37) U/L ALT 40 (12-78) U/L Alkaline Phosphatase 75 (45-117) U/L Total Protein 7.7 (6.4-8.2) gm/dl Albumin 4.0 (3.4-5.0) gm/dl Globulin 3.7 (2.5-4.0) gm/dl Albumin/Globulin Ratio 1.1 (0.9-2) Lipase 110 (73-393) U/L Blood Pressure Blood Pressure Findings: Elevated blood pressure Blood Pressure Disposition: elevated BP felt to be situational MDM Narrative This is a 44-year-old male who presents emergency department after 3 days of diarrhea and began vomiting. Patient reports he has had episodes like this previously. He is taking Compazine and Phenergan at home without relief. He is actively vomiting upon arrival to the emergency department. Using shared medical decision making with the patient decision was made to obtain IV work and to try medications. He was given Zofran as well as Tylenol and capsaicin here in the emergency department he was also given Benadryl as well as Compazine. Repeat examination revealed improvement the patient's symptoms. I attempted to replete the patient's potassium here in the emergency department however the patient vomited up. He was then given IV potassium. Because the patient continues to vomit I did discuss the case with the hospitalist service who did agree to admit the patient. Serial abdominal examinations were performed on the patient in the emergency department and at no time the patient exhibited surgical abdomen or abdominal tenderness. Patient was seen and evaluated as above in room B5. Review was performed of nursing notes and vital signs. I did review pertinent previous visits and valentino ent history. After obtaining a thorough history and physical examination the above work up was performed. An order was placed for continuous cardiac monitoring. The monitor shows a rate of 79 with Normal SInus rhythm. The patient was evaluated during the global COVID-19 pandemic, and that di agnosis was suspected/considered upon their initial presentation. Their evaluation, treatment and testing was consistent with current guidelines for patients who present with complaints or symptoms that may be related to COVID- 19. Impression & Plan Vomiting, Acute hypokalemia Discharge Plan Visit Data Chief Complaint: Vomiting Stated Complaint: DEHYDRATION ED Provider: Maverick Curiel Discharge Problem: Vomiting, Acute hypokalemia Patient Disposition: Home - Self-Care Condition: Good Discharge Instructions Yana/Other Patient Handouts: Nausea Vomit Control, Vomit Diarrhea Self Care Activity Restrictions/Additional Instructions: Follow up with DR Klein's office You have been examined and treated today on an emergency basis only. This is not a substitute for, or an effort to provide, complete comprehensive medical care. It is impossible to recognize and treat all injuries or illnesses in a single e mergency department visit. It is therefore important that you follow up closely with DR Escalante. Call as soon as possible for an appointment. Thank you for your time and consideration. I look forward to speaking with you again soon. Please don't hesitate to call us if you have any questions. Forms Stand Alone Forms: My [facility], Important Visit Information Prescriptions Prescriptions: New ondansetron HCl [Zofran] 4 mg tablet 4 mg PO Q6 PRN (Reason: nausea and vomiting) Qty: 6 RF: 0 No Action levothyroxine 112 mcg tablet 112 mcg PO DAILYBB Qty: 30 RF: 5 Novolog U-100 Insulin aspart 100 unit/mL solution See Rx Instructions continuous subcutaneous infusion DAILY Qty: 8 RF: 3 Baqsimi 3 mg/actuation spray,non-aerosol 3 mg INTNAS ONCE Qty: 2 RF: 6 (DME) lancets [Accu-Chek Fastclix Lancet Drum] misc See Dose Instructions .ROUTE .MEDSUPPLY Qty: 50 RF: 0 (DME) Accu-Chek Guide strip See Dose Instructions .ROUTE .MEDSUPPLY Qty: 10 RF: 0 (DME) blood-glucose meter [Accu-Chek Guide Glucose Meter] misc See Dose Instructions .ROUTE .MEDSUPPLY Qty: 1 RF: 0 (DME) insulin syringe-needle U-100 [BD Insulin Syringe Ultra-Fine] 0.5 mL 31 gauge x 5/16" syringe See Dose Instructions .ROUTE .MEDSUPPLY Qty: 10 RF: 0 bupropion HCl 150 mg tablet sustained-release 12 hr 150 mg PO DIRECTED RF: 0 fentanyl 75 mcg/hr patch 72 hour 1 patch TD Q72H RF: 0 glucagon HCl 1 mg recon soln 1 mg IM DIRECTED PRN (Reason: Hypocalcemia) RF: 0 (DME) Ketostix strip See Dose Instructions .ROUTE .MEDSUPPLY Qty: 25 RF: 0 Lantus U-100 Insulin 100 unit/mL solution See Rx Instructions .ROUTE .COMPLEX RF: 0 cyanocobalamin (vitamin B-12) 500 mcg tablet 0 mcg PO DAILY RF: 0 cholecalciferol (vitamin D3) 2,000 unit capsule 0 units PO DAILY RF: 0 duloxetine [Cymbalta] 60 mg capsule,delayed release(DR/EC) 60 mg PO BID RF: 0 promethazine 12.5 mg tablet 12.5 mg PO TID PRN (Reason: nausea and vomiting) Qty: 7 RF: 0 prochlorperazine maleate [Compazine] 5 mg tablet 5 mg PO BID PRN (Reason: nausea and vomiting) Qty: 14 RF: 0 Vyvanse 20 mg capsule 30 mg PO DAILY RF: 0 Referrals Referrals: Cecily Escalante DO [Primary Care Provider] - Maria Elena Klein [Physician] - Discharge Problem: Vomiting Qualifiers: Vomiting type: unspecified Vomiting Intractability: unspecified Nausea presen ce: unspecified Qualified Code(s): R11.10 - Vomiting, unspecified
[2020-02-23] MEDS ORDERED: PROMETHAZINE 25 MG/51 ML BAG IV STA (17:12)
[2020-02-23] MEDS ORDERED: methylPREDNISolone 125 MG/2 ML VIAL IV STA (17:12)
--- NOTE | 2020-02-23 18:09 | History & Physical Report ---
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 Start lactobacillus if tolerating Clears as tolerating Does use regular medical marijuana, but with recent decrease in use. Still with daily use however. Cyclic vomiting syndrome related to MJ use? 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 Pt states that he started to have n/v on Thur sday AM. It seemed similar to his cyclic vomiting episodes he has had in the past, so he took his home phenergan/compazine and this did help. He was able to tolerate some liquids at that time. That night, he developed diarrhea. He had ongoing diarrhea yesterday, but no emesis. He did have mild nausea and did tolerate some PO yesterday, but minimal. This AM, he took Imodium for his diarrhea and had return of n/v. He again tried his phenergan/compazine, but threw them up almost immediately and that was the last of his dosing, so he came to the ED. Pt was feeling a bit better with steroids, zofran, IVF, benadryl, compazine, phenergan in the ED and was being prepared for d/c to home when he had return of emesis. It was decided that pt should stay for overnight observation. He does get some cramping with emesis, but no other abd pain. Pt states that it has been 3-4 months since his last issue with this. He does generally tie it with increased anxiety and stress, which he has had recently due to end of the semester issues and COVID. He uses medical marijuana regularly and had been able to do so during this episode. He states that he has been trying to cut down his use, but does use it daily. He states his BS have been doing well recently. It is a bit high today, but this is consistent with a "sick day" for him. Pt was seen by Ellie Sumner on 02/18 and felt to be doing well from a DM management standpoint. No changes made at that time. Pt states he had a gastric emptying test 6-8 months ago and it was WNL. Pt denies fever, SOB, chest pain, LE pain or swelling. Allergies Allergy/AdvReac Type Severity Reaction Status Date / Time No Known Drug Allergies Allergy Verified 01/24/20 12:10 pollen extracts Allergy Verified 01/24/20 12:10 Home Medications Home Medications Medication Instructions Recorded Confirmed Type bupropion HCl 150 mg tablet,12 hr 150 mg PO BID ea 05/07/19 02/23/20 History sustained-release cyanocobalamin (vitamin B-12) 500 0 mcg PO DAILY tab 05/07/19 02/23/20 History mcg tablet fentanyl 75 mcg/hr transdermal 1 patch TD Q72H ea 05/07/19 02/23/20 History patch prochlorperazine maleate 5 mg PO BID PRN #14 tab 08/24/19 02/23/20 Rx [Compazine] promethazine 12.5 mg PO TID PRN #7 tab 08/24/19 02/23/20 Rx duloxetine 60 mg capsule,delayed 60 mg PO BID cap 09/04/19 02/23/20 History release lisdexamfetamine 20 mg capsule 30 mg PO DAILY cap 12/04/19 02/23/20 History levothyroxine 112 mcg tablet 112 mcg PO DAILYBB #30 tab 12/14/19 02/23/20 Rx insulin aspart U-100 [Novolog 0 unit CONTINUOUS SUBCUTANEOUS 02/23/20 02/23/20 History U-100 Insulin aspart] INFUSION DAILY ondansetron HCl [Zofran] 4 mg PO Q6 PRN #6 tab 02/23/20 Rx oxycodone 5 mg PO Q8H PRN 02/23/20 02/23/20 History Past Med/Surg History Medical History Nausea Surgical History History of cervical discectomy (2009) Family History Mother Multiple myeloma Denies family history of Prostate cancer Social History (Updated 02/23/20 @ 18:16 by Genesis Galaviz DO) Preferred Language: Croatian Feels Safe at Home: Yes Smoking Status: Never smoker Hx Alcohol Use: Yes Alcohol Intake Frequency Comment: 1-2 drinks a month Hx Substance Use: Yes Last Used Substance Other:: medical marijuana daily Review of Systems Review of Systems: Pertinent positives and negatives reviewed in HPI--all others negative Physical Exam Constitutional: WD/WN, vitals as above + ill appearing Eyes: normal visual arritea by confrontation and + anicteric sclerae Neck: normal visual inspection and trachea midline Respiratory: normal respiratory effort, lungs clear to auscultation Cardiovascular: Rate/Rhythm: regular rate and regular rhythm Gastrointestinal (Abdomen): Inspection/Auscultation: abdomen not distended Percussion/Palpation: abdomen soft; abdomen nontender Musculoskeletal: Head/Neck/Chest: normocephalic and head atraumatic negative for edema, peripheral pulses intact Skin: no rashes, warm and dry Neurologic: awake; not confused Speech / Cognition: normal speech Psychiatric: A+Ox3, euthymic affect Results & Data Results & Data ([facility]) Vital Signs (Past 12 Hours) Vital Signs Temp Pulse Resp BP Pulse Ox 02/23/20 16:30 79 17 02/23/20 16:00 73 16 02/23/20 15:30 92 H 21 02/23/20 15:19 80 10 L 02/23/20 13:35 36.6 C 77 22 157/64 H 100 PG Care Time/CCT Total # of Minutes Spent Total Time Spent with Patient: Total time spent is greater than 50% in coordination of care (as documented) at patient's floor/unit and/or counseling patient: Coding Level of Care Code 51795 OBS Care - Level 3 Diagnoses Intractable nausea and vomiting R11.2 Acute hypokalemia E87.6 Hypothyroidism E03.9 Depression F32.9 Anxiety F41.9 Diabetic peripheral neuropathy E11.42 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
[2020-02-23] MEDS ORDERED: OXYCODONE HCL IR 5 MG TAB (IMMEDIATE RELEASE) PO PRN (19:43)
[2020-02-23] MEDS ORDERED: PROCHLORPERAZINE MALEATE 5 MG TAB PO PRN (19:43)
[2020-02-23] MEDS ORDERED: PROMETHAZINE HCL 25 MG TAB PO PRN ×2 (19:43)
[2020-02-23] MEDS ORDERED: MAGNESIUM HYDROXIDE SUSP 30 ML UDC PO PRN (19:43)
[2020-02-23] MEDS ORDERED: PROCHLORPERAZINE 5 MG in SYRINGE 4 ML IV PRN (19:43)
[2020-02-23] MEDS ORDERED: ACETAMINOPHEN 325 MG TAB PO PRN (19:43)
[2020-02-23] MEDS ORDERED: ONDANSETRON INJ 2 MG/ML 2 ML VIAL IV PRN (19:43)
[2020-02-23] MEDS ORDERED: PROMETHAZINE HCL 12.5 MG in SODIUM CHLORIDE 0.9% 50 ML IV PRN (19:43)
[2020-02-23] MEDS ORDERED: GLUCAGON FOR INJ 1 MG VIAL SQ PRN (20:30)
[2020-02-23] MEDS ORDERED: CARBOHYDRATES FOR HYPOGLYCEMIA PO PRN (20:30)
[2020-02-23] MEDS ORDERED: GLUCOSE 10 TABS/TUBE PO PRN (20:30)
[2020-02-23] MEDS ORDERED: GLUCOSE 40% GEL 15 GM TUBE PO PRN (20:30)
[2020-02-23] MEDS ORDERED: DEXTROSE 50% 50 ML SYRINGE IV PRN (20:30)
[2020-02-23] MEDS ORDERED: INSULIN ASPART 100 UNITS/ML VIAL SC PRN (20:30)
[2020-02-23] MEDS ORDERED: fentaNYL 75 MCG/HR TDSY TD SCH (21:00)
[2020-02-23] MEDS: DULOXETINE HCL 60 MG CAP PO SCH (21:18)
[2020-02-23] MEDS: NSS + 20MEQ KCL 20 MEQ/1,000 ML BAG IV SCH (21:19)
[2020-02-23] MEDS: BuPROPion SR 150 MG TABCR PO SCH (21:43)
[2020-02-23] MEDS: NovoLOG INSULIN PUMP SCH (21:45)
[2020-02-24] MEDS: CHECK FENTANYL PATCH PLACEMENT SCH ×2 (00:07→08:19)
[2020-02-24 00:17] LABS: Appearance Urine Clear (Clear); Bilirubin Urine Negative (Negative); Blood Urine Negative (Negative); Color Urine Yellow; Glucose Urine UA Negative (Negative); Ketones Urine 3+ (Negative); Leukocyte Esterase Urine Negative (Negative); Nitrite Urine Negative (Negative); Protein Urine Negative (Negative); Urobilinogen Urine Negative (Negative); pH Urine 6.5 (4.5-7.5)
[2020-02-24] MEDS: NSS + 20MEQ KCL 20 MEQ/1,000 ML BAG IV SCH (06:10)
[2020-02-24] MEDS ORDERED: LEVOTHYROXINE SODIUM 112 MCG TABLET PO SCH (06:30)
[2020-02-24] MEDS ORDERED: LACTOBACILLUS ACIDOPHILUS (FLORANEX) TAB PO SCH (08:00)
[2020-02-24] MEDS: NovoLOG INSULIN PUMP SCH (08:18)
[2020-02-24] MEDS: DULOXETINE HCL 60 MG CAP PO SCH (08:19)
[2020-02-24] MEDS: BuPROPion SR 150 MG TABCR PO SCH (08:19)
[2020-02-24] MEDS ORDERED: INSULIN ASPART PER UNIT SC SCH (09:00)
[2020-02-24] MEDS ORDERED: CYANOCOBALAMIN 500 MCG TABLET (VITAMIN B-12) PO SCH (09:00)
[2020-02-24] MEDS ORDERED: LISDEXAMFETAMINE 30 MG PO SCH (09:00)
[2020-02-24 09:12] LABS: BUN Creatinine Ratio 12.5 (10-20); Calcium 8.9 mg/dl (8.5-10.1); Est GFR (African American) 122.8; Magnesium 2.3 mg/dl (1.8-2.4); Phosphorus 3.2 mg/dl (2.5-4.9); Potassium 3.8 mmol/L (3.5-5.1)
--- NOTE | 2020-02-24 11:20 | Discharge Summary ---
Date of Service February 24, 2020 Admission HPI Per Admitting Provider 44 y/o M c/o intractable n/v. Pt states that he started to have n/v on AM. It seemed similar to his cyclic vomiting episodes he has had in the past, so he took his home phenergan/compazine and this did help. He was able to tolerate some liquids at that time. That night, he developed diarrhea. He had ongoing diarrhea yesterday, but no emesis. He did have mild nausea and did tolerate some PO yesterday, but minimal. This AM, he took Imodium for his diarrhea and had return of n/v. He again tried his phenergan/compazine, but threw them up almost immediately and that was the last of his dosing, so he came to the ED. Pt was feeling a bit better with steroids, zofran, IVF, benadryl, compazine, phenergan in the ED and was being prepared for d/c to home when he had return of emesis. It was decided that pt should stay for overnight observation. He does get some cramping with emesis, but no other abd pain. Pt states that it has been 3-4 months since his last issue with this. He does generally tie it with increased anxiety and stress, which he has had recently due to end of the semester issues and COVID. He uses medical marijuana regularly and had been able to do so during this episode. He states that he has been trying to cut down his use, but does use it daily. He states his BS have been doing well recently. It is a bit high today, but this is consistent with a "sick day" for him. Pt was seen by Ellie Sumner on 02/18 and felt to be doing well from a DM management standpoint. No changes made at that time. Pt states he had a gastric emptying test 6-8 months ago and it was WNL. Pt denies fever, SOB, chest pain, LE pain or swelling. Principal Diagnosis Pt has had no further n/v since arriving to the floor from the ED. He has not required any PRN medications. He tolerated clears for dinner and breakfast without issue. His diarrhea has resolved s/p the Imodium he took [employer] [employer]. He is out of his home PRN n/v medications as he took his last doses [employer] [employer]. Pt denies fever, SOB, chest pain, abd pain, LE pain or swelling. Discharge Exam Constitutional WD/WN, vitals as above Eyes normal visual arrieta by confrontation and + anicteric sclerae Neck normal visual inspection and trachea midline Respiratory normal respiratory effort, lungs clear to auscultation Cardiovascular Rate/Rhythm: regular rate and regular rhythm Gastrointestinal (Abdomen) Inspection/Auscultation: abdomen not distended Percussion/Palpation: abdomen soft; abdomen nontender Musculoskeletal Head/Neck/Chest: normocephalic and head atraumatic Skin no rashes, warm and dry Neurologic awake; not confused Speech / Cognition: normal speech Psychiatric A+Ox3, euthymic affect Discharge Data Allergies Allergy/AdvReac Type Severity Reaction Status Date / Time No Known Drug Allergies Allergy Verified 01/24/20 12:10 pollen extracts Allergy Verified 01/24/20 12:10 Consultations 02/23/20 17:12 ED Decision to Admit Stat Hospital Course (1) Intractable nausea and vomiting: compazine, phenergan, benadryl, steroids in the ED Did not have further n/v since admission Diarrhea has resolved as well Hx of similar episodes Reports neg gastric emptying 6-8 months ago 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 Does use regular medical marijuana, but with recent decrease in use. Still with daily use however. Cyclic vomiting syndrome related to MJ use? 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, with long-term current use of insulin: Pt requests to use his home insulin pump A1c 7.5 10/29 Recent DM visit on 02/18 was felt to be in good management and no changes made to current regimen (8) DVT prophylaxis: SCDs, ambulation Total Time Total Time Spent Total Time Spent (In Minutes): >30 Total Time Includes: Examination of the Patient, Discharge Planning, Medication Reconciliation and Other Discharge Plan Discharge Items Patient Disposition: Home - Self-Care Reason For Visit: INTRACTABLE N/V Discharge Diagnosis: Intractable nausea/vomiting Condition on Discharge: Good Activity: Resume your previous activity Non-emergency contact: Primary Care Provider Call non-emergency contact if: you have any medication questions and your symptoms worsen Follow-up/Referrals: Cecily Escalante, [Primary Care Provider] - Diet: Carb Count or DM1 Addtl Attending Provider Instructions: You should keep your diet a bit more light over the next few days, meaning avoid very heavy meals that are fatty, greasy, fried, spicy, as well as very large meals. You should start taking a probiotic. The one I recommend for most patients is Jarrow EPS 5 billion. It is a mix of 8 different bacteria. You can find this product at [employer] in [place]. You should start with 1 a day. The goal is to have 1 solid bowel movement a day. If after 2 weeks you are still feeling constipated, you should increase to 2 probiotics daily. You can take up to 4 a day, but you want to take the least amount of any type of medication or supplement. If you start having diarrhea, you might be taking too much and should decrease. Pending Studies at Discharge: No Stand-Alone Forms: My [facility] Job, Smoking Cessation Medications and DC Order Prescriptions: New ondansetron HCl [Zofran] 4 mg tablet 4 mg PO Q6 PRN (Reason: nausea and vomiting) Qty: 6 RF: 0 promethazine 25 mg Tablet 12.5 mg PO TID PRN (Reason: nausea and vomiting) Qty: 30 RF: 0 prochlorperazine maleate 5 mg Tablet 5 mg PO BID PRN (Reason: nausea and vomiting) Qty: 30 RF: 0 Continued levothyroxine 112 mcg tablet 112 mcg PO DAILYBB Qty: 30 RF: 5 bupropion HCl 150 mg tablet sustained-release 12 hr 150 mg PO BID RF: 0 fentanyl 75 mcg/hr patch 72 hour 1 patch TD Q72H RF: 0 cyanocobalamin (vitamin B-12) 500 mcg tablet 0 mcg PO DAILY RF: 0 duloxetine [Cymbalta] 60 mg capsule,delayed release(DR/EC) 60 mg PO BID RF: 0 insulin aspart U-100 [Novolog U-100 Insulin aspart] 100 unit/mL solution 0 unit continuous subcutaneous infusion DAILY RF: 0 oxycodone 5 mg tablet 5 mg PO Q8H PRN (Reason: .BREAKTHROUGH PAIN) RF: 0 Vyvanse 20 mg capsule 30 mg PO DAILY RF: 0 Discontinued promethazine 12.5 mg tablet 12.5 mg PO TID PRN (Reason: nausea and vomiting) Qty: 7 RF: 0 prochlorperazine maleate [Compazine] 5 mg tablet 5 mg PO BID PRN (Reason: nausea and vomiting) Qty: 14 RF: 0 Discharge Orders: Discharge Order (Routine); Ordered 02/24/20 Ordered By: Genesis Galaviz Admission Data Admit Date/Time: 02/23/20 18:07 Attending Provider: Genesis Galaviz Admit Provider: Genesis Galaviz Primary Care Provider: Cecily Escalante Other Providers: Binh Palmer Other Interventions: Discharge Summary Assessment (RN) Last Done: 02/24/20 11:51 DC Date/Time DO NOT enter until pt leaves facility: 02/24/20 12:10 Coding Level of Care Code D/C Day Management >30 mins Diagnoses Intractable nausea and vomiting R11.2 Acute hypokalemia E87.6 Hypothyroidism E03.9 Depression F32.9 Anxiety F41.9 Diabetic peripheral neuropathy E11.42 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
== END 2020-02-24 12:10 | disposition home or self-care (01) ==
LOC: ED 13:34 → 2N 13:34